=== PATIENT | male | born 1990 | race African-American/Black ===

== ENCOUNTER 2017-12-17 23:36 | Emergency (ER) | payer OTHER ==
[2017-12-18] VITALS: BP 131/91; PULSE 93; TEMP 98.6; BMI 27.3
--- NOTE | 2017-12-18 00:07 | PDOC ---
History of Present Illness - General History Source: Patient Exam Limitations: No Limitations - History of Present Illness Initial Comments: 12/18/17 00:08 27 y/o M with no significant PMH who presents to the ED c/o wrist laceration that occurred half an hour ago. As per pt, he was at home when he punched a glass container, lacerating the ulnar base of his R wrist. At the time, pt noted increased bleeding, however it has decreased since his trip to the ED. Pt does not know when his last tetanus shot was. Otherwise, pt denies JACKSON, fever, chills, SOB, or chest pain. 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 has smoked for 10 years 4-5 cigarettes/ day, social drinker, denies recreational drug use <Pooja Marie - Last Filed: 12/18/17 02:52> <Angie Naik - Last Filed: 12/18/17 05:55> - General Chief Complaint: Laceration Stated Complaint: LACERATION Time Seen by Provider: 12/17/17 23:50 Past History - Suicide/Smoking/Psychosocial Hx Smoking History: Never smoked Have you smoked in the past 12 months: No Information on smoking cessation initiated: No Hx Alcohol Use: No Drug/Substance Use Hx: No <Pooja Marie - Last Filed: 12/18/17 02:52> <Angie Naik - Last Filed: 12/18/17 05:55> - Past Medical History Allergies/Adverse Reactions: Allergies Allergy/AdvReac Type Severity Reaction Status Date / Time No Known Allergies Allergy Verified 12/17/17 23:59 Home Medications: Ambulatory Orders Cephalexin Monohydrate [Keflex -] 500 mg PO BID #6 capsule 12/18/17 Review of Systems - Review of Systems Musculoskeletal: Yes: Other (+wrist laceration) <Pooja Marie - Last Filed: 12/18/17 02:52> *Physical Exam - Vital Signs Last Vital Signs Temp Pulse Resp BP Pulse Ox 98.6 F 93 H 20 131/91 100 12/17/17 23:59 12/17/17 23:59 12/17/17 23:59 12/17/17 23:59 12/17/17 23:59 - Physical Exam General Appearance: Yes: Nourished, Other (in no acute distress) HEENT: positive: EOMI, HIPOLITO Neck: positive: Supple Respiratory/Chest: positive: Lungs Clear, Normal Breath Sounds Cardiovascular: positive: Regular Rhythm, Regular Rate, S1, S2 Vascular Pulses: Carotid (R): 2+, Carotid (L): 2+ Gastrointestinal/Abdominal: positive: Normal Bowel Sounds, Soft Musculoskeletal: positive: Other (+ laceration - ulnar side R wrist, lumbricle, and wrist flexion and extension intact. Sensation intact. pain with ulnar deviation) Extremity: positive: Normal Capillary Refill Neurologic: positive: box strapper II-XII NML intact <Pooja Marie - Last Filed: 12/18/17 02:52> - Vital Signs Last Vital Signs Temp Pulse Resp BP Pulse Ox 98.6 F 93 H 20 131/91 100 12/17/17 23:59 12/17/17 23:59 12/17/17 23:59 12/17/17 23:59 12/17/17 23:59 <Angie Naik - Last Filed: 12/18/17 05:55> Procedures - Laceration/Wound Repair Right Medial Volar Wrist Wound Length: 2.6 to 5.0 cm Wound Explored: clean Wound's Depth, Shape: into muscle, linear Irrigated w/ Saline: Yes Betadine Prep: Yes Anesthesia: 1% Lidocaine Suture Size/Type: 5:0, 4:0 Number of Sutures: 7 Sterile Dressing Applied: Yes <Angie Naik - Last Filed: 12/18/17 05:55> ED Treatment Course - Medications Given in the ED: ED Medications Discontinued Medications Generic Name Dose Route Start Last Admin Trade Name Freq PRN Reason Stop Dose Admin Tetanus/Diphtheria Toxoids Adsorbed 0.5 ml 12/18/17 00:17 12/18/17 01:07 Decavac IM 12/18/17 00:18 0.5 ml .ONCE ONE Administration <Angie Naik - Last Filed: 12/18/17 05:55> Medical Decision Making - Medical Decision Making 12/18/17 00:25 27 y/o M with no significant PMH who presents to the ED c/o wrist laceration that occurred half an hour ago. Ulnar exam WNL - sensation intact, ROM intact. Pain with ulnar deviation Will order the following -tetanus tdap -XR R wrist - to r/o glass fragments -will irrigate, need suturing 12/18/17 02:49 d/c - received 7 sutures. will need to return in 10 days to have sutures removed will give keflex abx <Pooja Marie - Last Filed: 12/18/17 02:52> *DC/Admit/Observation/Transfer - Discharge Dispostion Admit: No <CynthiaPooja - Last Filed: 12/18/17 02:52> - Discharge Dispostion Admit: No <Moon Naikreen - Last Filed: 12/18/17 05:55> Diagnosis at time of Disposition: Wrist laceration Qualifiers: Encounter type: initial encounter Laterality: right Qualified Code(s): S61.511A - Laceration without foreign body of right wrist, initial encounter - Discharge Dispostion Disposition: HOME Condition at time of disposition: Improved - Prescriptions Prescriptions: Cephalexin Monohydrate [Keflex -] 500 mg PO BID #6 capsule - Patient Instructions Printed Discharge Instructions: DI for Laceration Repair Additional Instructions: You were recently in the emergency room for a wrist laceration. You may return to work in ten days. At that time, we would also like you to come in to [facility] to have your sutures removed. Please take the antibiotic, Keflex twice a day for the next 3 days. We sent this prescription to your pharmacy. You may also apply ointment to the laceration. If you develop any severe injury, bleeding, or discharge from the wound, please go to the hospital. We hope you feel better soon. - Post Discharge Activity Forms/Work/School Notes: Back to Work
[2017-12-18] MEDS ORDERED: TETANUS AND DIPHTHERIA TOXOID 0.5 ML DISP.SYRIN IM ONE (00:17)
[2017-12-18] MEDS ORDERED: LIDOCAINE HCL 1%, 10 MG/ML (20ML VIAL) ONE (01:11)
[2017-12-18] MEDS ORDERED: CEPHALEXIN MONOHYDRATE 500 MG CAPSULE (UD) PO ONE (02:48)
[2017-12-18] MEDS ORDERED: CEPHALEXIN MONOHYDRATE 250 MG CAPSULE (FP) ONE (02:50)
--- NOTE | 2017-12-18 02:55 | PDOC ---
Attending Attestation - Resident Resident Name: Pooja Marie - ED Attending Attestation I have performed the following: I have examined & evaluated the patient, The case was reviewed & discussed with the resident, I agree w/resident's findings & plan - HPI HPI: 12/18/17 02:51 Pt punched glass container of cutlery and the whole thing shattered and glass lacerated the volar ulnar setion of his wrist 3.5 cm cured. Examined in a bloodless field with FROM of fingers and wrist and he has no tendon laceration. Tendon of the 4th/5th finger seen. Pt has excellent flexor strenth of all fingers and adduction strong. Pt has excellent capillary refill - Physicial Exam PE: 12/18/17 02:50 Agree with resident exam. - Medical Decision Making 12/18/17 02:50 Home with keflex prophylaxis.
== END 2017-12-18 03:07 | disposition home or self-care (01) ==
LOC: JER 23:36
PROC: 3E0234Z Introduction of Serum, Toxoid and Vaccine into Muscle, Percutaneous Approach (ICD-10-PCS; principal; 2017-12-17)
PROC: 0JQG0ZZ Repair Right Lower Arm Subcutaneous Tissue and Fascia, Open Approach (ICD-10-PCS; 2017-12-17)
DX: S61.511A Laceration without foreign body of right wrist, initial encounter (principal); W25.XXXA Contact with sharp glass, initial encounter; Y93.89 Activity, other specified; Y92.89 Other specified places as the place of occurrence of the external cause; Y99.8 Other external cause status
CPT/HCPCS: 73110-TC-RT-FY; 73130-TC-RT-FY; 99281-25

== ENCOUNTER 2017-12-27 13:37 | Emergency (ER) | payer OTHER ==
[2017-12-27 13:40] VITALS: BP 142/98; PULSE 76; TEMP 97.5; BMI 31.9
--- NOTE | 2017-12-27 14:05 | PDOC ---
Suture Removal/Wound Check HPI - History of Present Illness Chief Complaint: Suture/Staple Removal(Here) Stated Complaint: SUTURE REMOVAL Time Seen by Provider: 12/27/17 13:49 History Source: Yes: Patient Exam Limitations: Yes: No Limitations [facility] Date of Last ED visit: 12/17/17 - Previous ED Treatment Type of procedure performed on last visit: Yes: Laceration Repair Tetanus Immunization: Yes: Up to Date Antibiotics Prescribed: Yes - Onset of Previous Treatment Date of Occurence: 12/17/17 Past History - Past Medical History Allergies/Adverse Reactions: Allergies Allergy/AdvReac Type Severity Reaction Status Date / Time No Known Allergies Allergy Verified 12/27/17 13:41 Home Medications: Ambulatory Orders Cephalexin Monohydrate [Keflex -] 500 mg PO BID #6 capsule 12/18/17 COPD: No - Suicide/Smoking/Psychosocial Hx Smoking History: Never smoked Have you smoked in the past 12 months: No Number of Cigarettes Smoked Daily: 10 Information on smoking cessation initiated: No Hx Alcohol Use: No Drug/Substance Use Hx: No Patient Lives Alone: No Lives with/in: parents Suture Removal/Wound Check PE - Physical Exam Laceration/Wound Check Symptoms: reports: None Current Severity Level: None Maximum Severity Level: None Location of Laceration/Wound: left: Wrist Pain Radiation: None Medical Decision Making - Medical Decision Making 12/27/17 14:06 Patient status post laceration on December 17. Patient has no complaints presently. removed 7 sutures without difficulty. Bacitracin and a Steri-Strip applied. *DC/Admit/Observation/Transfer Diagnosis at time of Disposition: Visit for suture removal - Discharge Dispostion Disposition: HOME Condition at time of disposition: Good - Referrals - Patient Instructions Printed Discharge Instructions: DI for Suture Removal Additional Instructions: Keep area clean and dry. Allow Steri-Strips to fall off on their own. - Post Discharge Activity
== END 2017-12-27 14:07 | disposition home or self-care (01) ==
LOC: JERFT 13:37
DX: Z48.02 Encounter for removal of sutures (principal)
CPT/HCPCS: 99281-25

== ENCOUNTER 2021-07-31 13:40 | Emergency (ER) | payer OTHER ==
[2021-07-31 13:57] VITALS: BP 124/80; PULSE 81; TEMP 98.1; BMI 27.1
[2021-07-31] MEDS ORDERED: BACITRACIN 15 GM TUBE TOPICAL OINTMENT ONE (14:34)
== END 2021-07-31 14:48 | disposition home or self-care (01) ==
LOC: JER 13:40 → JERFT 13:40
DX: L88 Pyoderma gangrenosum (principal); L76.22 Postprocedural hemorrhage of skin and subcutaneous tissue following other procedure
CPT/HCPCS: 99283-25